=== PATIENT | male | born 1930 | race Caucasian/White ===

== ENCOUNTER 2017-07-05 03:46 | Inpatient (IN) | payer MEDICARE ==
[2017-07-05] VITALS (7 sets, daily range): BP systolic 105–158; BP diastolic 48–72
[~2017-07-05] VITALS: Ht 177.8 cm; Wt 99.0 kg
--- NOTE | ~2017-07-05 | CON ---
[place], [place] REPORT OF CONSULTATION NAME: SARITHA CAMPOS UNIT #: [id number] ROOM: 421 DOCTOR: LANCE RODRIGEZ MD BIRTHDATE: [birth year] DOS: 07/09/2017 CONSULTATION REQUESTED BY: Hospitalist services. REASON FOR CONSULTATION: Assessment of symptoms of cough and other symptoms of chronic obstructive pulmonary disease. HISTORY OF PRESENT ILLNESS: This is an 86-year-old white male patient, who has been hospitalized on 07/05/2017 under the care of the hospitalist service. The patient's original complaint on admission was reported as increased shortness of breath ongoing for the past few days after an acute cold attack. The patient's shortness of breath has been noted worsening with increased chest congestion and cough. The patient has not been reported any symptoms of chest pain. Denies symptoms of hemoptysis. Cough is still described by the patient with productive sputum at this time. The patient has been currently treated and noted in the Intensive Care Unit. He has been comfortably resting on the chair at this morning of assessment. REVIEW OF SYSTEMS: CONSTITUTIONAL: The patient was noted with symptoms of fatigue and tiredness, but there were no symptoms of fever or chills reported. EYES: Denies any burning, redness or tenderness. EARS, NOSE, THROAT: Denies sore throat, hoarseness, otalgia or postnasal drainage. He had cold symptoms, the patient seemed to be better this morning. CARDIOVASCULAR SYSTEM: Denies anginal pain, edema or pain in the lower extremity. GASTROINTESTINAL: No dysphagia, nausea, vomiting, diarrhea, abdominal pain, hematemesis, melena or hematochezia. SKIN: Denies abnormal lesions or rashes. MUSCULOSKELETAL: Noted without any acute deformities or pain. CENTRAL NERVOUS SYSTEM: History of Parkinsonism was noted in the past. There were no symptoms of diplopia, headache or migraines. The remaining systems were reviewed, they were noted all negative. PAST MEDICAL HISTORY: 1. History of Parkinsonism. 2. Dementia. 3. Head injury previously. 4. History of dementia. 5. History of frequent falls. 6. Visual hallucinations. PAST SURGICAL HISTORY: Reported as cholecystectomy. SOCIAL HISTORY: The patient stated he has worked in the [employer] for 32 years and has been noted past tobacco use, not smoking any cigarettes at this time. He is and has 2 children. FAMILY HISTORY: The patient's father of complication related to colon [place], [place] REPORT OF CONSULTATION NAME: SARITHA CAMPOS UNIT #: [id number] ROOM: 421 DOCTOR: SHRUTI FRAIRE MD,LANCE BIRTHDATE: [birth year] cancer, 60+ years old, with history of congestive heart failure also reported. Mother at the age of 60+ years from complication of uterine cancer. HOME MEDICATIONS: Listed as use of Sinemet, aspirin, Colace, fenofibrate, Lasix, levothyroxine, lisinopril, pravastatin, and Requip. DRUG ALLERGY HISTORY: Reported as no known drug allergies. PHYSICAL EXAMINATION: GENERAL: An 86-year-old white male patient, currently sitting on the chair without any acute distress at the time of assessment this morning. The patient's height was reported as 5 feet 10 inches, weight of 224 pounds, BMI 32. VITAL SIGNS: Showed the temperature normal at 99 degrees Fahrenheit in the past 3 days, respiratory 20-18, heart rate of 70-68, blood pressure 138/68 to 151/67. Pulse oxygen saturation on room air at rest was 95% saturation. HEENT: Head was atraumatic, partial edentulous status. NECK: Supple. CARDIOVASCULAR: S1, S2 audible. LUNGS: Noted with moderate decreased breath sounds in the lungs bilaterally. Wheezing was also noted scattered in the lungs. ABDOMEN: Soft, nontender. Mild obesity. Bowel sounds present without any tenderness. CENTRAL NERVOUS SYSTEM: The patient was noted with essential resting tremor consistent with diagnosis of Parkinsonism. There was no gross focal neurologic deficits seen. Cranial nerve examination could not be performed. VISIBLE SKIN: No lesions or rashes. MUSCULOSKELETAL: No deformities noted. LABORATORY DATA: Arterial blood gas for the patient that was done on 07/07/2017, pH of 7.45, pCO2 35, pO2 79, ammonia level 24. CMP of the patient on 07/07/2017, BUN 26, creatinine normal, sodium 133. Troponin minimally elevated at 0.18, second set was 0.174, done on 07/07/2017. Blood culture, no bacterial growth from 07/05/2017. BMP yesterday, BUN 26, creatinine was normal. CBC for the patient that was done yesterday noted as WBC count normal, hemoglobin 11.4, hematocrit 36.8. Chest x-ray of the patient that was done on admission, 1-view done first, on 07/05/2017, showed there was no acute major pulmonary infiltration. Chest x-ray repeated, 2-view, for the patient was noted essentially normal without any evidence of pulmonary infiltration, congestive heart failure or pleural effusions. IMPRESSION: 1. The patient has been currently admitted to the hospital, noted with acute chronic obstructive pulmonary disease exacerbation, responding to treatment with minimal wheezing noted. He has acute bronchitis, bacterial or viral in origin. 2. History of Parkinsonism with some dementia history as well. 3. The patient has other medical problem with the possibility of non-ST segment elevation myocardial infarction as well. PLAN OF MANAGEMENT: Continue corticosteroids, bronchodilators, and oxygen supplementation. The patient seems to respond to treatment, expectorates sputum [place], [place] REPORT OF CONSULTATION NAME: SARITHA CAMPOS UNIT #: [id number] ROOM: 421 DOCTOR: LANCE RODRIGEZ MD BIRTHDATE: [birth year] effectively, and would not require any new intervention at this time. If the symptoms become progressive from that one or if the patient develops any additional problem, certainly additional recommendation will be given accordingly. All other supportive therapy and plan of management to be continued as well. Usual care, other plan of therapy and treatments. Thanks for allowing me to participate in the care of this patient. LANCE BAHENA MD CM:CONSTR:REPORT OF CONSULTATION 1638 07/10/17 5520 interface
--- NOTE | ~2017-07-05 | CON ---
[place], [place] REPORT OF CONSULTATION NAME: SARITHA CAMPOS UNIT #: [id number] ROOM: [place] [address] DOCTOR: LILLIE MOSES MD BIRTHDATE: [birth year] DOS: 07/07/2017 LOCATION: The patient is examined in the Intensive Care Unit REASON FOR CONSULTATION: Altered mental status and mildly elevated troponin of 0.11. Most of the information is obtained from the chart. The patient was confused earlier and he is much better. HISTORY OF PRESENT ILLNESS: An 86-year-old gentleman with a known history of Parkinson's disease, admitted with shortness of breath. The patient, for the last 3-4 days, had cold-like symptoms. He denies any fever. He had become very short of breath, wheezing and chest congestion and he was started on antibiotics. He was in the 5th floor and became confused and he was transferred to the Intensive Care Unit with troponin of 0.11 as mentioned. He denies any chest discomfort. He does have shortness of breath and brief altered mental status. PAST MEDICAL HISTORY: Significant for closed head injury, dementia, frequent falls, hyperlipidemia, hypertension, Parkinson's disease. PAST SURGICAL HISTORY: Cholecystectomy. SOCIAL HISTORY: Denies any alcohol or drug abuse. Former smoker. FAMILY HISTORY: Positive for coronary artery disease. HOME MEDICATIONS: Carbidopa, Lasix, fenofibrate, lisinopril, pravastatin. CARDIAC RISK FACTORS: Hypertension, dyslipidemia, history of diastolic failure. REVIEW OF SYSTEMS: Somewhat limited because of altered mental status. He knows his name and place. He has intermittent confusion. CONSTITUTIONAL: Denies any fever or chills. HEENT: He does have some visual disturbances and hearing problems. CARDIOVASCULAR: No chest pain. No palpitations. RESPIRATORY: He does have shortness of breath. ABDOMEN: No nausea, no vomiting. GENITOURINARY: No dysuria. NEUROLOGIC: Intermittent confusion with altered mental status. PHYSICAL EXAMINATION: VITAL SIGNS: Blood pressure now is 140/70, heart rate is 76. He is in sinus rhythm. HEENT: Unremarkable. No carotid bruit. No thyromegaly. LUNGS: Clear. HEART: Sounds are regular. ABDOMEN: Soft, nontender. NEUROLOGICAL: He is moving all the extremities with intermittent confusion. LABORATORY AND IMAGING DATA: Shows hemoglobin 11.8, hematocrit 37, white count [place], [place] REPORT OF CONSULTATION NAME: SARITHA CAMPOS UNIT #: [id number] ROOM: [place] [address] DOCTOR: LILLIE MOSES MD BIRTHDATE: [birth year] of 9.7. Troponin was 0.11. His last creatinine was 1.04. Electrolytes were normal. EKG sinus with nonspecific ST-T changes. IMPRESSION: 1. Altered mental status. 2. Mildly elevated troponin noted. 3. Tachypnea, acute shortness of breath. 4. Acute kidney failure with acute tubular necrosis. 5. Normocytic anemia. 6. Hyperglycemia. 7. Hypermagnesemia. 8. Parkinson's disease. 9. Altered mental status. RECOMMENDATIONS: Continue the present care. Monitor the vital signs closely. Continue to do the serial enzymes. Add a very small dose of beta blockers like metoprolol 25 mg p.o. b.i.d. Get an echocardiogram to assess the ejection fraction. We will monitor the enzymes closely. Use heparin for DVT prophylaxis and we will follow up. LILLIE MOSES MD CM:CONSTR:REPORT OF CONSULTATION 0716 07/07/17 0855 interface
[~2017-07-05 03:46] MED LIST: AMLACTIN121 T; ANTIBIOTIC O500 U/GM TP; ARICEPT10 M1 PO; ASPIRIN81 M1 PO; BACTROBAN22 TP; BENZTROPINE ME0.5 MG PO; Bactrim 200 MG/30 ML PO; CEPHALEXIN500 M1 PO; CIPRO500 MG PO; COGENTIN0.5 MG PO; DOCUSATE SODIU100 M2 PO; DULCOLAX; DULCOLAX10 MG R; EUCERIN, DERMA120 GM T; EXELON3 MG PO; FLAGYL500 MG PO; FLEET ENEMA 13135 ML R; KEFLEX500 M1 PO; LASIX20 MG PO; LASIX40 MG PO; LISINOPRIL5 MG PO; Lovenox40 MG/0.4 SC; MIRALAX17 GM/PACK PO; MOM30 ML PO; NAMENDA-14 PO; NORCO 10-325 T1 EACH PO; NYSTOP100000 U/G T; Nystatin Cream15 GM T; ONE DAILY FOR1 EAC2 PO; PAXIL10 MG PO; PAXIL20 M1 PO; PRAVASTATIN SOD40 MG PO; PREPARATION H HYDR1% TP; REMERON15 M2 PO; SINEMET 25-1001 TA1 PO; SINEMET 25-100M1 TAB PO; SINEMET CR 50/21 TAB PO; STOOL SOFTENER100 MG PO; Sinemet Cr 50/21 TAB PO; TEMAZEPAM15 M1 PO; TYLENOL325 M1 PO
[2017-07-05] MEDS ORDERED: Synthroid,Levo25 MCG PO (03:52)
[2017-07-05] MEDS ORDERED: ROPINIROLE HY0.25 MG PO (03:53)
[2017-07-05] MEDS ORDERED: COLACE100 MG PO (03:53)
[2017-07-05] MEDS ORDERED: FENOFIBRATE160 MG PO (03:53)
[2017-07-05 04:13] LABS: BASO # 0.1 10*3/uL (0.0-0.1); BASO % 1.1 % (0.0-1.0); EOS # 0.2 10*3/uL (0.0-0.4); EOS % 3.2 % (1.0-4.0); HEMATOCRIT 38.9 % (42.0-52.0); HEMOGLOBIN 12.4 g/dl (14.0-18.0); LYMPH % 17.7 % (27.0-41.0); MEAN CELL VOLUME 88.6 fl (80.0-94.0); MEAN CORPUSCULAR HGB 28.2 pg (27.0-31.0); MEAN CORPUSCULAR HGB CONC 31.9 g/dl (33.0-37.0); MEAN PLATELET VOLUME 9.6 fl (9.6-12.3); MONO # 0.8 10*3/uL (0.1-1.0); MONO % 14.5 % (3.0-9.0); NEUT # 3.6 10*3/uL (2.3-7.9); NEUT % 63.1 % (47.0-73.0); PLATELET COUNT AUTOMATED 169 10*3/uL (130-400); RED BLOOD COUNT 4.39 10*6/uL (4.50-5.90); RED CELL DISTRI WIDTH 14.7 % (0-14.5); WHITE BLOOD COUNT 5.7 10*3/uL (4.8-10.8)
[2017-07-05 04:29] LABS: ALBUMIN 3.6 gm/dl (3.1-4.5); ALKALINE PHOSPHATASE 27 U/L (45-117); BUN 28 mg/dl (7-24); CHLORIDE 108 mmol/L (98-107); CREATININE 1.36 mg/dL (0.70-1.30); LIPASE 99 U/L (73-393); POTASSIUM 3.9 mmol/L (3.5-5.1); SGOT/AST 40 IU/L (3-35); SGPT/ALT 13 U/L (12-78); SODIUM 142 mmol/L (136-145); TOTAL PROTEIN 7.2 gm/dL (6.4-8.2)
[2017-07-05 04:30] LABS: TROPONIN I 0.043 ng/ml (<0.045)
[2017-07-05] MEDS ORDERED: LASIX20 MG PO (06:05)
[2017-07-06] VITALS: BP 139/63
[2017-07-06 07:11] LABS: BASO % 0.2 % (0.0-1.0); HEMATOCRIT 36.8 % (42.0-52.0); HEMOGLOBIN 11.6 g/dl (14.0-18.0); LYMPH # 0.8 10*3/uL (1.3-4.4); LYMPH % 12.1 % (27.0-41.0); MEAN CELL VOLUME 88.5 fl (80.0-94.0); MEAN CORPUSCULAR HGB 27.9 pg (27.0-31.0); MEAN CORPUSCULAR HGB CONC 31.5 g/dl (33.0-37.0); MEAN PLATELET VOLUME 9.7 fl (9.6-12.3); MONO # 0.5 10*3/uL (0.1-1.0); MONO % 7.1 % (3.0-9.0); NEUT # 5.3 10*3/uL (2.3-7.9); NEUT % 80.1 % (47.0-73.0); PLATELET COUNT AUTOMATED 164 10*3/uL (130-400); RED BLOOD COUNT 4.16 10*6/uL (4.50-5.90); RED CELL DISTRI WIDTH 14.6 % (0-14.5); WHITE BLOOD COUNT 6.6 10*3/uL (4.8-10.8)
[2017-07-06 07:31] LABS: ALBUMIN 3.1 gm/dl (3.1-4.5); CHLORIDE 110 mmol/L (98-107); POTASSIUM 3.9 mmol/L (3.5-5.1); SODIUM 143 mmol/L (136-145)
[2017-07-06 07:39] LABS: ALKALINE PHOSPHATASE 25 U/L (45-117); BUN 19 mg/dl (7-24); CHOLESTEROL 112 mg/dL (<200); CREATININE 1.04 mg/dL (0.70-1.30); HDL CHOLESTEROL 48 mg/dl (40-60); LDL CHOLESTEROL 50 mg/dL (9-159); SGOT/AST 32 IU/L (3-35); SGPT/ALT 11 U/L (12-78); TOTAL PROTEIN 6.7 gm/dL (6.4-8.2); TRIGLYCERIDES 72 mg/dl (<150); VLDL CHOLESTEROL 14 mg/dL (6-40)
[2017-07-06 08:00] VITALS: BP 152/68
[2017-07-06 08:11] LABS: VITAMIN D, 25-HYDROXY 23.7 ng/mL (30-100)
[2017-07-06 12:00] VITALS: BP 153/70
[2017-07-06 16:00] VITALS: BP 151/72
[2017-07-06 20:00] VITALS: BP 148/78
[2017-07-07] VITALS (7 sets, daily range): BP systolic 120–170; BP diastolic 53–82
[2017-07-07 05:01] LABS: ABG BASE EXCESS 1.1 mmol/L (-2.0-2.0); ABG HCO3 24.4 mmol/l (22-26); ABG O2 SATURATION 96.8 % (95-97); ARTERIAL BLOOD GAS PH 7.455 (7.35-7.45); ARTERIAL BLOOD GAS PO2 79.1 mmHg (80-90)
[2017-07-07 05:01] LABS: BASO % 0.3 % (0.0-1.0); HEMOGLOBIN 11.8 g/dl (14.0-18.0); LYMPH # 0.9 10*3/uL (1.3-4.4); LYMPH % 9.4 % (27.0-41.0); MEAN CELL VOLUME 87.3 fl (80.0-94.0); MEAN CORPUSCULAR HGB 27.8 pg (27.0-31.0); MEAN CORPUSCULAR HGB CONC 31.9 g/dl (33.0-37.0); MEAN PLATELET VOLUME 9.6 fl (9.6-12.3); MONO # 0.6 10*3/uL (0.1-1.0); MONO % 5.8 % (3.0-9.0); NEUT # 8.1 10*3/uL (2.3-7.9); NEUT % 84.2 % (47.0-73.0); PLATELET COUNT AUTOMATED 182 10*3/uL (130-400); RED BLOOD COUNT 4.24 10*6/uL (4.50-5.90); RED CELL DISTRI WIDTH 14.7 % (0-14.5); WHITE BLOOD COUNT 9.7 10*3/uL (4.8-10.8)
[2017-07-07 05:19] LABS: ALBUMIN 3.1 gm/dl (3.1-4.5); ALKALINE PHOSPHATASE 27 U/L (45-117); BUN 26 mg/dl (7-24); CHLORIDE 108 mmol/L (98-107); CREATININE 1.12 mg/dL (0.70-1.30); PHOSPHOROUS 2.4 mg/dL (2.5-4.9); POTASSIUM 4.2 mmol/L (3.5-5.1); SGOT/AST 45 IU/L (3-35); SGPT/ALT 16 U/L (12-78); SODIUM 142 mmol/L (136-145); TOTAL PROTEIN 6.8 gm/dL (6.4-8.2)
[2017-07-07 05:27] LABS: TROPONIN I 0.118 ng/ml (<0.045)
[2017-07-07 10:28] LABS: BILIRUBIN NEGATIVE (NEGATIVE); BLOOD NEGATIVE (NEGATIVE); CLARITY CLEAR (CLEAR); COLOR STRAW (YELLOW); GLUCOSE NEGATIVE (NEGATIVE); KETONE NEGATIVE (NEGATIVE); LEUKO ESTERASE NEGATIVE (NEGATIVE); NITRITE NEGATIVE (NEGATIVE); PH 5.5 (5.0-9.0); SPECIFIC GRAVITY <= 1.005 (1.005-1.030); UROBILINOGEN 0.2 E.U./dl (0.2-1.0)
[2017-07-07 11:11] LABS: BACTERIA TRACE; EPITHELIAL CELLS 0-2
[2017-07-08] VITALS: BP 153/83
[2017-07-08 04:00] VITALS: BP 130/64; BP 166/71
[2017-07-08 05:07] LABS: BUN 26 mg/dl (7-24); CHLORIDE 108 mmol/L (98-107); CREATININE 1.08 mg/dL (0.70-1.30); POTASSIUM 4.4 mmol/L (3.5-5.1); SODIUM 143 mmol/L (136-145)
[2017-07-08 05:55] LABS: BASO % 0.2 % (0.0-1.0); EOS % 0.1 % (1.0-4.0); HEMATOCRIT 36.8 % (42.0-52.0); HEMOGLOBIN 11.4 g/dl (14.0-18.0); LYMPH # 1.8 10*3/uL (1.3-4.4); LYMPH % 20.7 % (27.0-41.0); MEAN CELL VOLUME 89.8 fl (80.0-94.0); MEAN CORPUSCULAR HGB 27.8 pg (27.0-31.0); MEAN PLATELET VOLUME 10.5 fl (9.6-12.3); MONO # 0.7 10*3/uL (0.1-1.0); MONO % 8.6 % (3.0-9.0); NEUT % 69.9 % (47.0-73.0); PLATELET COUNT AUTOMATED 188 10*3/uL (130-400); RED CELL DISTRI WIDTH 14.8 % (0-14.5); WHITE BLOOD COUNT 8.6 10*3/uL (4.8-10.8)
[2017-07-08 08:00] VITALS: BP 180/77
[2017-07-08 12:00] VITALS: BP 154/68
[2017-07-08 15:57] VITALS: BP 151/59
[2017-07-08 20:03] VITALS: BP 151/67
[2017-07-09] VITALS: BP 159/58
[2017-07-09 04:00] VITALS: BP 161/77
[2017-07-09 08:00] VITALS: BP 138/88
[2017-07-09 12:00] VITALS: BP 136/70
[2017-07-09] MEDS ORDERED: PREDNISONE10 MG PO (15:32)
[2017-07-09] MEDS ORDERED: TOPROL XL25 MG PO (15:34)
[2017-07-09 16:00] VITALS: BP 108/69
== END 2017-07-09 17:30 | disposition other institution (70) | DRG 871 ==
LOC: ED 03:46 → EDHOLD 04:55 → 4E 04:55 → ICCU 04:55 → 4E 05:13 → ICCU 07-07 06:46 → 4E 07-09 13:57
PROVIDERS: Emergency Medicine Emergency Medical Services; Internal Medicine; Student in an Organized Health Care Education/Training Program
DX: A41.9 Sepsis, unspecified organism (principal); N17.0 Acute kidney failure with tubular necrosis; I21.A1 Myocardial infarction type 2; J18.9 Pneumonia, unspecified organism; G20 Parkinson's disease; E44.0 Moderate protein-calorie malnutrition; E87.8 Other disorders of electrolyte and fluid balance, not elsewhere classified; J44.0 Chronic obstructive pulmonary disease with (acute) lower respiratory infection; J44.1 Chronic obstructive pulmonary disease with (acute) exacerbation; Z68.32 Body mass index [BMI] 32.0-32.9, adult; R65.20 Severe sepsis without septic shock; D64.9 Anemia, unspecified; J20.9 Acute bronchitis, unspecified; F02.80 Dementia in other diseases classified elsewhere, unspecified severity, without behavioral disturbance, psychotic disturbance, mood disturbance, and anxiety; D72.810 Lymphocytopenia; R73.9 Hyperglycemia, unspecified; E83.41 Hypermagnesemia; E83.51 Hypocalcemia; R74.0 Nonspecific elevation of levels of transaminase and lactic acid dehydrogenase [LDH]; I10 Essential (primary) hypertension; E78.5 Hyperlipidemia, unspecified; E83.39 Other disorders of phosphorus metabolism; Z87.440 Personal history of urinary (tract) infections; Z91.81 History of falling; Z90.49 Acquired absence of other specified parts of digestive tract; Z98.42 Cataract extraction status, left eye; Z87.891 Personal history of nicotine dependence; Z82.49 Family history of ischemic heart disease and other diseases of the circulatory system; Z80.8 Family history of malignant neoplasm of other organs or systems; Z83.3 Family history of diabetes mellitus; Z79.82 Long term (current) use of aspirin; Z79.899 Other long term (current) drug therapy; Z80.0 Family history of malignant neoplasm of digestive organs

== ENCOUNTER 2017-09-21 17:24 | Emergency (ER) | payer MEDICARE ==
[~2017-09-21] VITALS: Ht 177.8 cm; Wt 94.3 kg
[~2017-09-21 17:24] MED LIST changes: +COLACE100 MG PO; +FENOFIBRATE160 MG PO; +PREDNISONE10 MG PO; +ROPINIROLE HY0.25 MG PO; +Synthroid,Levo25 MCG PO; +TOPROL XL25 MG PO
[2017-09-21 17:26] VITALS: BP 154/61
[2017-09-21 17:56] LABS: BILIRUBIN NEGATIVE (NEGATIVE); BLOOD NEGATIVE (NEGATIVE); CLARITY SL CLOUDY (CLEAR); COLOR YELLOW (YELLOW); GLUCOSE NEGATIVE (NEGATIVE); KETONE NEGATIVE (NEGATIVE); LEUKO ESTERASE NEGATIVE (NEGATIVE); NITRITE NEGATIVE (NEGATIVE); PH 5.5 (5.0-9.0)
[2017-09-21 18:06] LABS: BACTERIA TRACE; EPITHELIAL CELLS 0-2; RBC 0-2 rbc/hpf (0-2)
[2017-09-21 18:19] LABS: BASO # 0.1 10*3/uL (0.0-0.1); BASO % 1.1 % (0.0-1.0); EOS # 0.2 10*3/uL (0.0-0.4); HEMATOCRIT 37.7 % (42.0-52.0); HEMOGLOBIN 11.8 g/dl (14.0-18.0); LYMPH # 2.5 10*3/uL (1.3-4.4); LYMPH % 37.6 % (27.0-41.0); MEAN CELL VOLUME 89.3 fl (80.0-94.0); MEAN CORPUSCULAR HGB CONC 31.3 g/dl (33.0-37.0); MEAN PLATELET VOLUME 9.6 fl (9.6-12.3); MONO # 0.8 10*3/uL (0.1-1.0); MONO % 12.7 % (3.0-9.0); NEUT % 45.3 % (47.0-73.0); PLATELET COUNT AUTOMATED 179 10*3/uL (130-400); RED BLOOD COUNT 4.22 10*6/uL (4.50-5.90); RED CELL DISTRI WIDTH 14.7 % (0-14.5); WHITE BLOOD COUNT 6.6 10*3/uL (4.8-10.8)
[2017-09-21 18:30] LABS: ACT PARTIAL THROMBO TIME 22.6 SECONDS (20.8-31.5)
[2017-09-21 18:34] LABS: ALBUMIN 3.7 gm/dl (3.1-4.5); ALKALINE PHOSPHATASE 27 U/L (45-117); BUN 21 mg/dl (7-24); CHLORIDE 107 mmol/L (98-107); CREATININE 1.34 mg/dL (0.70-1.30); LIPASE 95 U/L (73-393); POTASSIUM 3.7 mmol/L (3.5-5.1); SGOT/AST 25 IU/L (3-35); SGPT/ALT 12 U/L (12-78); SODIUM 144 mmol/L (136-145); TOTAL PROTEIN 6.9 gm/dL (6.4-8.2); TROPONIN I 0.034 ng/ml (<0.045)
[2017-09-21 19:28] VITALS: BP 189/75
[2017-09-21 20:32] VITALS: BP 176/71
[2017-09-21 21:27] VITALS: BP 182/72
[2017-09-21 22:49] VITALS: BP 173/60
[2017-09-21 23:26] VITALS: BP 162/64
[2017-09-22 00:14] VITALS: BP 169/61
[2017-09-22 00:42] VITALS: BP 160/61
== END 2017-09-22 00:57 | disposition short-term general hospital (02) ==
LOC: ED 17:24 → EDHOLD 19:20 → 5E 19:29 → EDHOLD 19:29 → ED 09-22 00:57
PROVIDERS: Emergency Medicine
DX: E86.0 Dehydration (principal); G93.41 Metabolic encephalopathy; I48.92 Unspecified atrial flutter; E78.5 Hyperlipidemia, unspecified; I10 Essential (primary) hypertension; I25.2 Old myocardial infarction; G20 Parkinson's disease; Z87.891 Personal history of nicotine dependence; Z90.49 Acquired absence of other specified parts of digestive tract; Z98.890 Other specified postprocedural states; Z79.82 Long term (current) use of aspirin; Z79.899 Other long term (current) drug therapy

== ENCOUNTER 2017-10-05 13:16 | Emergency (ER) | payer MEDICARE ==
[~2017-10-05] VITALS: Ht 177.8 cm; Wt 90.7 kg
== END 2017-10-05 14:45 | disposition home or self-care (01) ==
LOC: ED 13:16
DX: S01.01XA Laceration without foreign body of scalp, initial encounter (principal); E78.5 Hyperlipidemia, unspecified; I10 Essential (primary) hypertension; E03.9 Hypothyroidism, unspecified; E66.3 Overweight; I48.92 Unspecified atrial flutter; Z68.29 Body mass index [BMI] 29.0-29.9, adult; Z79.899 Other long term (current) drug therapy; Z79.82 Long term (current) use of aspirin; Z87.891 Personal history of nicotine dependence; W18.30XA Fall on same level, unspecified, initial encounter; Y93.89 Activity, other specified; Y92.89 Other specified places as the place of occurrence of the external cause; Y99.8 Other external cause status

== ENCOUNTER 2017-12-16 14:15 | Inpatient (IN) | payer MEDICARE ==
[2017-12-16] VITALS (8 sets, daily range): BP systolic 84–143; BP diastolic 46–81
[~2017-12-16] VITALS: Ht 177.8 cm; Wt 94.9 kg
--- NOTE | ~2017-12-16 | PR ---
[place], [place] PROGRESS NOTE NAME: SARITHA CAMPOS UNIT #: [id number] ROOM: 409 DOCTOR: LILLIE MOSES MD BIRTHDATE: [birth year] DOS: 12/22/2017 SUBJECTIVE: The patient was evaluated by me earlier, the patient is well known to me. The patient is comfortably sleeping at this point. REVIEW OF SYSTEMS: Somewhat limited because of intermittent confusion. OBJECTIVE: VITAL SIGNS: Blood pressure is 118/80. He is afebrile. The repeat pressure is 155/64. I's and O's is positive l iter. GENERAL: He is alert, awake, not in acute distress, responsive, pleasant. HEENT: Unremarkable. NECK: Supple, no JVD. LUNGS: Diminished air entry. HEART: Sounds are regular. ABDOMEN: Soft, nontender. No rebound tenderness. EXTREMITIES: Intact pulses. NEUROLOGIC: Grossly intact with a parkinsonian tremors. IMPRESSION: Escherichia coli bacteremia, septicemia, acute renal failure, generalized weakness, mildly elevated troponin, paroxysmal atrial flutter and hypothyroidism. RECOMMENDATIONS: Cardiac status appears to be stable. Ejection fraction is very well preserved. Continue the present medications as ordered. He is on metoprolol 25 b.i.d. and the antibiotics and levothyroxine, fenofibrate, carbidopa and PT, OT consult. Supportive care. LILLIE MOSES MD CM:PNTRANS 0714 [id number] LILLIE MOSES MD 12/22/17 0856 interface
--- NOTE | ~2017-12-16 | PR ---
[place], [place] PROGRESS NOTE NAME: SARITHA CAMPOS UNIT #: [id number] ROOM: 409 DOCTOR: NIC LIEBERMAN BIRTHDATE: [birth year] DOS: 12/19/2017 SUBJECTIVE: The patient is an 87-year-old male who is being followed for E. coli septicemia and prostatitis. He remains on Rocephin. WBCs are coming down. They are down to 14.6. He did have a UA that was positive for pyuria. Blood and urine cultures grew fairly sensitive E. coli. His only imaging has been a chest x-ray. The patient is alert, confused and unable to give any history. He denies any pain. Denies nausea, vomiting or diarrhea. He has been afebrile overnight. LABORATORY DATA: WBCs are down to 14.6, platelets 150. BUN 17, creatinine 0.87, ALT 29, AST 8. PHYSICAL EXAMINATION: GENERAL: An 87-year-old male, alert, confused, pleasant, in no acute distress. VITAL SIGNS: Temperature 97.9, pulse 76, respirations 16, BP 150/90. HEENT: Normocephalic, no thrush. LUNGS: Clear to auscultation bilaterally. Respirations even and unlabored. HEART: Regular rhythm. No murmur appreciated. ABDOMEN: Soft, mild distention, nontender. Positive bowel sounds. EXTREMITIES: +2 edema in bilateral lower extremities. SKIN: Warm, very dry, free of rashes. ASSESSMENT: Escherichia coli septicemia from urinary tract infection, may have originated with a prostatitis. PLAN: At this point, we will continue the Rocephin and check PSA to help confirm possible prostatitis. JUNE NIC LUISANA [place], [place] PROGRESS NOTE NAME: SARITHA CAMPOS UNIT #: [id number] ROOM: 409 DOCTOR: NIC LIEBERMAN,JUNE BIRTHDATE: [birth year] Danay Dexter MD CM:PNTRANS 1611 [id number] JUNE [facility] 12/19/17 1637 interface
--- NOTE | ~2017-12-16 | CON ---
[place], [place] REPORT OF CONSULTATION NAME: SARITHA CAMPOS UNIT #: [id number] ROOM: [facility] DOCTOR: LILLIE MOSES MD BIRTHDATE: [birth year] DOS: 12/17/2017 The patient examined in the Intensive Care Unit. REASON FOR CONSULTATION: Mildly elevated troponin, most of the information is obtained from the chart. HISTORY OF PRESENT ILLNESS: The patient is an 87-year-old gentleman whom I had seen in the past basically came in with me with a history of Parkinson's disease, paroxysmal atrial fibrillation, hypertension, dyslipidemia, depression, and numerous, multiple admissions. The patient was feeling well until yesterday morning, being half for about 2 months, he was in rehab after hospital stay for a urinary tract infection. The patient is readmitted for the same reason. The patient is bacteremic and also has a urinary tract infection. Troponin is mildly elevated, probably type 2 myocardial infarction from the underlying left anemia and other issues. He denies any chest discomfort, not in acute distress at this point. PAST MEDICAL HISTORY: Paroxysmal atrial fibrillation, dementia, hyperlipidemia, hypertension, Parkinson's disease. PAST SURGICAL HISTORY: Cardiac catheterization, cholecystectomy, cataract extraction, colonoscopy. SOCIAL HISTORY: Denies any alcohol abuse. Former smoker. FAMILY HISTORY: Noncontributory. HOME MEDICATIONS: Include atorvastatin, fenofibrate supply and lisinopril, melatonin, metoprolol. REVIEW OF SYSTEMS: Somewhat limited because of the underlying dementia; however, he denies any chest discomfort. HEENT: Denies any blurred vision. CARDIOVASCULAR: As mentioned. GASTROINTESTINAL: No nausea, no vomiting. GENITOURINARY: No dysuria. NEUROLOGIC: He appears to be somewhat alert, intermittent confusion. PHYSICAL EXAMINATION: VITAL SIGNS: Blood pressure today 96/37. GENERAL: He is alert, awake, does not look to be in acute distress. HEENT: Unremarkable. NECK: Supple, no JVD. LUNGS: Diminished breath sounds. HEART: Sounds are regular. ABDOMEN: Soft, nontender. NEUROLOGICAL: Moving all the extremities grossly intact. A very poor historian, exhibits normal mood left leg. [place], [place] REPORT OF CONSULTATION NAME: SARITHA CAMPOS UNIT #: [id number] ROOM: [facility]6 DOCTOR: LILLIE MOSES MD BIRTHDATE: [birth year] LABORATORY DATA: Sodium is 143, potassium 3.5, creatinine is 1.7. Hemoglobin A1c is 7.2. Troponin is 0.23. INR is 1.2. Hemoglobin 10.4, hematocrit 32.6. Urine is positive with bacteria 4+. Blood cultures are positive also. IMPRESSION: Septicemia and bacteremia, urinary tract infection, elevated troponin, probably type 2 from the renal insufficiency as well as bacteremia, acute renal failure with acute tubular necrosis, obesity, Parkinson's disease, hypothyroidism, hyperlipidemia, all positive for the positives and negatives are positive for Gram-negative bacteremia. Echocardiogram showed no obvious vegetations, ejection fraction is well preserved. Troponin elevation is probably secondary to the other underlying causes. Continue the beta blockers and the aspirin as ordered. Monitor the heart rate and blood pressure closely. Continue IV antibiotics. Discussed with the patient's family in detail and will follow up. LILLIE MOSES MD CM:CONSTR:REPORT OF CONSULTATION 1535 12/17/17 1721 interface
--- NOTE | ~2017-12-16 | PR ---
[place], [place] PROGRESS NOTE NAME: SARITHA CAMPOS UNIT #: [id number] ROOM: 409 DOCTOR: ELVIS ROJAS MD BIRTHDATE: [birth year] DOS: 12/20/[address] Bonner SUBJECTIVE: This patient was admitted with the urinary tract infection and was somewhat septic and troponin I level was slightly increased. He is comfortable. He is sitting in a recliner, not tachypneic. He is not complaining of any chest pain or any palpitations. The notes tell me that he has been eating reasonably well. PHYSICAL EXAMINATION: GENERAL: This is a patient who is alert, oriented. VITAL SIGNS: Pulse is 76 and regular, blood pressure 156/86. NECK: Normal JVP. LUNGS: He has a few crackles in the right base, left lung seems to be clear, 1+ pretibial edema bilaterally. LABORATORY DATA: I looked to the initial ECG done on the that demonstrated sinus tachycardia at 125 beats per minute with left anterior hemiblock. Monitor now shows normal sinus rhythm with a heart rate in the 70s. IMPRESSION: This patient had slightly increased troponin level. I think this is probably due to infection, tachycardia and perhaps anemia. Echocardiogram showed normal LV. No further workup is recommended. ELVIS ROJAS MD CM:PNTRANS 1538 2220 ELVIS ROJAS MD 01/08/18 1006 interface
--- NOTE | ~2017-12-16 | EKG ---
[place], [place] ELECTROCARDIOGRAM REPORT NAME: SARITHA CAMPOS UNIT #: [id number] ROOM: [facility] DOCTOR: CUAUHTEMOC DRAFT REPORT BIRTHDATE: [birth year] [facility] Test Date: 2017-12-16 Test Time: 14:46:58 Pat Name: SARTIHA CAMPOS Department: Room: [facility] Gender: M Supervisor Felling Bucking: Tessa Bergeron : 1930 Requested By: ALEXANDRA MEI PA-C Order Number: [id number] Reading MD: Jacinto Bonner MD Measurements Intervals [place] Rate: 125 P: 200 NV: 78 QRS: -75 QRSD: 102 T: 38 QT: 437 QTc: 631 Interpretive Statements Sinus or ectopic atrial tachycardia Left anterior fascicular block Abnormal R-wave progression, late transition Prolonged QT interval Electronically Signed On 12-17-2017 8:27:13 PDT by Jacinto Bonner MD CM:EKGRPT:ELECTROCARDIOGRAM REPORT [id number] [id number] ALEXANDRA MEI PA-C EPIPHANY DRAFT REPORT ALEXANDRA MEI PA-C
--- NOTE | ~2017-12-16 | PR ---
[place], [place] PROGRESS NOTE NAME: SARITHA CAMPOS UNIT #: [id number] ROOM: 409 DOCTOR: JOSESITO MYLES,ESTELITA BIRTHDATE: [birth year] DOS: 12/19/2017 I agree with the assessment and plan made by the nurse practitioner, Glory Bergeron. I had the [id number] encounter and made necessary changes in the note. I reviewed the labs and imaging. Danay Bellamy MD CM:PNTRANS 1655 0249 ESTELITA BELLAMY MD 01/05/18 0247 interface
[~2017-12-16 14:15] MED LIST changes: +LISINOPRIL10 M1 PO; -LISINOPRIL5 MG PO; +SINEMET 25-1001 EACH PO; -SINEMET 25-1001 TA1 PO; -SINEMET CR 50/21 TAB PO; -Synthroid,Levo25 MCG PO; +Synthroid,Levo50 MCG PO
[2017-12-16 14:53] LABS: HEMATOCRIT 37.7 % (42.0-52.0); HEMOGLOBIN 11.9 g/dl (14.0-18.0); MEAN CELL VOLUME 88.3 fl (80.0-94.0); MEAN CORPUSCULAR HGB 27.9 pg (27.0-31.0); MEAN CORPUSCULAR HGB CONC 31.6 g/dl (33.0-37.0); PLATELET COUNT AUTOMATED 148 10*3/uL (130-400); RED BLOOD COUNT 4.27 10*6/uL (4.50-5.90); RED CELL DISTRI WIDTH 14.8 % (0-14.5); WHITE BLOOD COUNT 4.9 10*3/uL (4.8-10.8)
[2017-12-16 15:02] LABS: ACT PARTIAL THROMBO TIME 21.8 SECONDS (20.8-31.5); INTERNATIONAL NORM RATIO 1.1 (2.0-3.5)
[2017-12-16 15:07] LABS: ALBUMIN 2.8 gm/dl (3.1-4.5); CREATININE 1.65 mg/dL (0.70-1.30); POTASSIUM 3.9 mmol/L (3.5-5.1); TOTAL PROTEIN 6.6 gm/dL (6.4-8.2)
[2017-12-16 15:07] LABS: BILIRUBIN NEGATIVE (NEGATIVE); BLOOD 2+ (NEGATIVE); CLARITY SL CLOUDY (CLEAR); COLOR YELLOW (YELLOW); GLUCOSE NEGATIVE (NEGATIVE); KETONE NEGATIVE (NEGATIVE); LEUKO ESTERASE TRACE (NEGATIVE); NITRITE POSITIVE (NEGATIVE)
[2017-12-16 15:10] LABS: TROPONIN I 0.053 ng/ml (<0.045)
[2017-12-16 15:13] LABS: BACTERIA 4+
[2017-12-16 15:14] LABS: PLATELET SUFFICIENCY NORMAL (NORMAL); ROULEAUX SLIGHT; TOTAL CELLS COUNTED 100 #CELLS; VACUOLATION OF NEUTROPHILS SLIGHT
[2017-12-16 15:14] LABS: RBC 31-40 rbc/hpf (0-2); WBC 16-20 wbc/hpf (0-5)
[2017-12-16] MEDS ORDERED: LIPITOR40 MG PO (15:17)
[2017-12-16] MEDS ORDERED: ICAPS MV TABLE1 EACH PO (15:18)
[2017-12-16] MEDS ORDERED: CLARITIN10 MG PO (15:19)
[2017-12-16] MEDS ORDERED: MELATONIN3 MG PO (15:19)
[2017-12-16] MEDS ORDERED: LOPRESSOR25 MG PO (15:20)
[2017-12-16] MEDS ORDERED: MIRALAX119 GM PO (15:21)
[2017-12-16] MEDS ORDERED: TYLENOL325 M2 PO (15:21)
[2017-12-16] MEDS ORDERED: ZOLOFT50 MG PO (15:21)
[2017-12-16] MEDS ORDERED: ICAPS AREDS SO1 EACH PO (17:53)
[2017-12-17] VITALS (7 sets, daily range): BP systolic 96–135; BP diastolic 37–59
[2017-12-17 00:41] LABS: CKMB 3.5 ng/ml (0.5-3.6)
[2017-12-17 00:42] LABS: TROPONIN I 0.228 ng/ml (<0.045)
[2017-12-17 04:34] LABS: HEMATOCRIT 32.6 % (42.0-52.0); HEMOGLOBIN 10.4 g/dl (14.0-18.0); MEAN CELL VOLUME 86.2 fl (80.0-94.0); MEAN CORPUSCULAR HGB 27.5 pg (27.0-31.0); MEAN CORPUSCULAR HGB CONC 31.9 g/dl (33.0-37.0); PLATELET COUNT AUTOMATED 147 10*3/uL (130-400); RED BLOOD COUNT 3.78 10*6/uL (4.50-5.90); RED CELL DISTRI WIDTH 15.2 % (0-14.5); WHITE BLOOD COUNT 29.9 10*3/uL (4.8-10.8)
[2017-12-17 04:45] LABS: INTERNATIONAL NORM RATIO 1.2 (2.0-3.5)
[2017-12-17 05:06] LABS: CKMB 4.7 ng/ml (0.5-3.6)
[2017-12-17 05:07] LABS: TROPONIN I 0.23 ng/ml (<0.045)
[2017-12-17 05:16] LABS: ALBUMIN 2.5 gm/dl (3.1-4.5); POTASSIUM 3.5 mmol/L (3.5-5.1)
[2017-12-17 05:28] LABS: CREATININE 1.7 mg/dL (0.70-1.30); PHOSPHOROUS 2.8 mg/dL (2.5-4.9); THYROID STIM HORMONE (HS) 3.43 uIU/ml (0.358-4.75)
[2017-12-17 05:29] LABS: TOTAL CELLS COUNTED 100 #CELLS
[2017-12-17 05:30] LABS: TOXIC GRANULATION SLIGHT
[2017-12-17 05:33] LABS: PLATELET SUFFICIENCY NORMAL (NORMAL)
[2017-12-17 07:33] LABS: VITAMIN D, 25-HYDROXY 27.6 ng/mL (30-100)
[2017-12-18 04:00] VITALS: BP 130/50
[2017-12-18 05:41] LABS: ALBUMIN 2.4 gm/dl (3.1-4.5); ALKALINE PHOSPHATASE 35 U/L (45-117); BUN 26 mg/dl (7-24); CHLORIDE 117 mmol/L (98-107); CREATININE 1.26 mg/dL (0.70-1.30); PHOSPHOROUS 2.4 mg/dL (2.5-4.9); POTASSIUM 3.8 mmol/L (3.5-5.1); SGOT/AST 42 IU/L (3-35); SGPT/ALT 8 U/L (12-78); SODIUM 148 mmol/L (136-145); TOTAL PROTEIN 6.2 gm/dL (6.4-8.2)
[2017-12-18 06:35] LABS: HEMATOCRIT 33.3 % (42.0-52.0); HEMOGLOBIN 10.3 g/dl (14.0-18.0); MEAN CELL VOLUME 87.9 fl (80.0-94.0); MEAN CORPUSCULAR HGB 27.2 pg (27.0-31.0); MEAN CORPUSCULAR HGB CONC 30.9 g/dl (33.0-37.0); MEAN PLATELET VOLUME 10.7 fl (9.6-12.3); PLATELET COUNT AUTOMATED 147 10*3/uL (130-400); RED BLOOD COUNT 3.79 10*6/uL (4.50-5.90); RED CELL DISTRI WIDTH 15.7 % (0-14.5); WHITE BLOOD COUNT 23.6 10*3/uL (4.8-10.8)
[2017-12-18 07:28] LABS: BASOPHILS 1 % (0-1); BURR CELLS MODERATE; PLATELET SUFFICIENCY NORMAL (NORMAL); TOTAL CELLS COUNTED 100 #CELLS
[2017-12-18 08:00] VITALS: BP 151/75
[2017-12-18 12:00] VITALS: BP 133/61
[2017-12-18 16:00] VITALS: BP 132/68
[2017-12-18 20:00] VITALS: BP 114/52
[2017-12-19] VITALS: BP 162/80
[2017-12-19 04:00] VITALS: BP 164/93
[2017-12-19 06:05] LABS: ALBUMIN 2.2 gm/dl (3.1-4.5); ALKALINE PHOSPHATASE 33 U/L (45-117); BUN 17 mg/dl (7-24); CHLORIDE 116 mmol/L (98-107); CREATININE 0.87 mg/dL (0.70-1.30); PHOSPHOROUS 2.2 mg/dL (2.5-4.9); SGOT/AST 29 IU/L (3-35); SGPT/ALT 8 U/L (12-78); SODIUM 149 mmol/L (136-145)
[2017-12-19 06:20] LABS: BASO # 0.1 10*3/uL (0.0-0.1); BASO % 0.6 % (0.0-1.0); EOS # 0.5 10*3/uL (0.0-0.4); EOS % 3.4 % (1.0-4.0); HEMATOCRIT 31.7 % (42.0-52.0); LYMPH # 1.9 10*3/uL (1.3-4.4); LYMPH % 12.8 % (27.0-41.0); MEAN CELL VOLUME 86.6 fl (80.0-94.0); MEAN CORPUSCULAR HGB 27.3 pg (27.0-31.0); MEAN CORPUSCULAR HGB CONC 31.5 g/dl (33.0-37.0); MEAN PLATELET VOLUME 10.8 fl (9.6-12.3); MONO # 0.8 10*3/uL (0.1-1.0); MONO % 5.3 % (3.0-9.0); NEUT # 11.2 10*3/uL (2.3-7.9); NEUT % 76.6 % (47.0-73.0); PLATELET COUNT AUTOMATED 150 10*3/uL (130-400); RED BLOOD COUNT 3.66 10*6/uL (4.50-5.90); RED CELL DISTRI WIDTH 15.8 % (0-14.5); WHITE BLOOD COUNT 14.6 10*3/uL (4.8-10.8)
[2017-12-19 08:00] VITALS: BP 150/90
[2017-12-19 16:00] VITALS: BP 149/72
[2017-12-19 20:00] VITALS: BP 156/73
[2017-12-20] VITALS: BP 140/70
[2017-12-20 06:49] LABS: BASO # 0.1 10*3/uL (0.0-0.1); EOS # 0.5 10*3/uL (0.0-0.4); EOS % 4.9 % (1.0-4.0); HEMATOCRIT 33.3 % (42.0-52.0); HEMOGLOBIN 10.6 g/dl (14.0-18.0); LYMPH # 2.1 10*3/uL (1.3-4.4); LYMPH % 20.5 % (27.0-41.0); MEAN CELL VOLUME 87.2 fl (80.0-94.0); MEAN CORPUSCULAR HGB 27.7 pg (27.0-31.0); MEAN CORPUSCULAR HGB CONC 31.8 g/dl (33.0-37.0); MEAN PLATELET VOLUME 10.7 fl (9.6-12.3); MONO # 0.6 10*3/uL (0.1-1.0); MONO % 6.2 % (3.0-9.0); NEUT # 6.6 10*3/uL (2.3-7.9); NEUT % 64.6 % (47.0-73.0); NUCLEATED RED BLOOD CELL 0.2 % (0.0-0.0); PLATELET COUNT AUTOMATED 176 10*3/uL (130-400); RED BLOOD COUNT 3.82 10*6/uL (4.50-5.90); RED CELL DISTRI WIDTH 15.8 % (0-14.5); WHITE BLOOD COUNT 10.2 10*3/uL (4.8-10.8)
[2017-12-20 07:26] LABS: BUN 14 mg/dl (7-24); CHLORIDE 112 mmol/L (98-107); POTASSIUM 4.2 mmol/L (3.5-5.1); SODIUM 144 mmol/L (136-145)
[2017-12-20 07:40] LABS: PHOSPHOROUS 3.3 mg/dL (2.5-4.9)
[2017-12-20 12:00] VITALS: BP 156/86
[2017-12-20 16:00] VITALS: BP 174/71
[2017-12-20 20:00] VITALS: BP 152/68
[2017-12-21] VITALS: BP 150/96
[2017-12-21 04:00] VITALS: BP 160/64
[2017-12-21 12:00] VITALS: BP 118/80
[2017-12-21] MEDS ORDERED: VITAMIN D-32000 UNIT PO (15:09)
[2017-12-21 16:00] VITALS: BP 158/74
[2017-12-21 20:00] VITALS: BP 160/61
[2017-12-21 21:30] VITALS: BP 152/64
[2017-12-22] VITALS: BP 155/64
[2017-12-22 08:00] VITALS: BP 138/70; BP 156/68
[2017-12-22 12:00] VITALS: BP 149/70
[2017-12-22 16:00] VITALS: BP 124/60
[2017-12-22 20:00] VITALS: BP 126/59
[2017-12-23] VITALS: BP 142/61
[2017-12-23 06:56] LABS: HEMATOCRIT 35.8 % (42.0-52.0); HEMOGLOBIN 11.2 g/dl (14.0-18.0); MEAN CELL VOLUME 86.3 fl (80.0-94.0); MEAN CORPUSCULAR HGB CONC 31.3 g/dl (33.0-37.0); MEAN PLATELET VOLUME 9.9 fl (9.6-12.3); PLATELET COUNT AUTOMATED 223 10*3/uL (130-400); RED BLOOD COUNT 4.15 10*6/uL (4.50-5.90); RED CELL DISTRI WIDTH 15.5 % (0-14.5); WHITE BLOOD COUNT 8.7 10*3/uL (4.8-10.8)
[2017-12-23 07:05] LABS: CREATININE 1.04 mg/dL (0.70-1.30)
[2017-12-23 07:44] LABS: TOTAL CELLS COUNTED 100 #CELLS
[2017-12-23 07:45] LABS: PLATELET SUFFICIENCY NORMAL (NORMAL)
[2017-12-23 08:00] VITALS: BP 149/71
[2017-12-23 12:00] VITALS: BP 149/69
[2017-12-23] MEDS ORDERED: CIPROFLOXACIN500 M4 PO (13:30)
== END 2017-12-23 16:04 | DRG 871 ==
LOC: ED 14:15 → EDHOLD 16:15 → ICCU 16:15 → 5E 16:24 → ICCU 18:58 → 4E 12-19 14:04
PROVIDERS: Internal Medicine; Internal Medicine Cardiovascular Disease; Physician Assistant; Student in an Organized Health Care Education/Training Program
DX: A41.9 Sepsis, unspecified organism (principal); N17.0 Acute kidney failure with tubular necrosis; E43 Unspecified severe protein-calorie malnutrition; N39.0 Urinary tract infection, site not specified; I48.92 Unspecified atrial flutter; R31.9 Hematuria, unspecified; R74.8 Abnormal levels of other serum enzymes; E66.9 Obesity, unspecified; Z66 Do not resuscitate; Z51.5 Encounter for palliative care; I35.1 Nonrheumatic aortic (valve) insufficiency; N41.9 Inflammatory disease of prostate, unspecified; B96.20 Unspecified Escherichia coli [E. coli] as the cause of diseases classified elsewhere; R65.20 Severe sepsis without septic shock; G20 Parkinson's disease; E55.9 Vitamin D deficiency, unspecified; I48.0 Paroxysmal atrial fibrillation; I10 Essential (primary) hypertension; E78.5 Hyperlipidemia, unspecified; E03.9 Hypothyroidism, unspecified; F32.9 Major depressive disorder, single episode, unspecified; Z79.82 Long term (current) use of aspirin; Z79.899 Other long term (current) drug therapy; Z90.49 Acquired absence of other specified parts of digestive tract; Z98.42 Cataract extraction status, left eye; Z83.3 Family history of diabetes mellitus; Z82.49 Family history of ischemic heart disease and other diseases of the circulatory system; Z80.0 Family history of malignant neoplasm of digestive organs; Z80.59 Family history of malignant neoplasm of other urinary tract organ; Z68.30 Body mass index [BMI] 30.0-30.9, adult

== ENCOUNTER 2018-01-27 19:18 | Emergency (ER) | payer MEDICARE ==
[~2018-01-27] VITALS: Ht 177.8 cm; Wt 86.2 kg
[~2018-01-27 19:18] MED LIST changes: +CIPROFLOXACIN500 M4 PO; +CLARITIN10 MG PO; +ICAPS AREDS SO1 EACH PO; +ICAPS MV TABLE1 EACH PO; +LIPITOR40 MG PO; +LOPRESSOR25 MG PO; +MELATONIN3 MG PO; +MIRALAX119 GM PO; +TYLENOL325 M2 PO; +VITAMIN D-32000 UNIT PO; +ZOLOFT50 MG PO
== END 2018-01-27 21:34 | disposition home or self-care (01) ==
LOC: ED 19:18
DX: S01.01XA Laceration without foreign body of scalp, initial encounter (principal); Z79.899 Other long term (current) drug therapy; Z90.49 Acquired absence of other specified parts of digestive tract; W19.XXXA Unspecified fall, initial encounter; Y93.89 Activity, other specified; Y92.89 Other specified places as the place of occurrence of the external cause; Y99.8 Other external cause status

== ENCOUNTER 2018-10-16 13:15 | Inpatient (IN) | payer MEDICARE ==
[~2018-10-16] VITALS: Ht 172.7 cm; Wt 95.0 kg
--- NOTE | ~2018-10-16 | CON ---
[place], [place] REPORT OF CONSULTATION NAME: SARITHA CAMPOS UNIT #: [id number] ROOM: 419 DOCTOR: NOEMI VASQUEZ MD BIRTHDATE: [birth year] DOS: 10/17/2018 CHIEF COMPLAINT: "I had a good breakfast. HISTORY OF PRESENT ILLNESS: This is an 87-year-old white male with a history of Parkinson's disease as well as Alzheimer's dementia, who was admitted to the medical floor at [facility] following multiple falls at home. This coincided with him starting a new medication Nuplazid, which per the daughter's report seems to have caused him excessive sedation and inability to ambulate properly. The patient has been pleasantly confused for the most part since he has been here in the hospital. PAST MEDICAL HISTORY: Remarkable for gait disturbance, weakness, debility, hyperchloremia, hyperglycemia, hypermagnesemia, normocytic anemia, falls, sacral wounds and transaminitis. He also has had a problem with atrial flutter in the past. SOCIAL HISTORY: He is a former cigarette smoker. He does not use illicit drugs or drink alcohol. MENTAL STATUS: He is alert and oriented to person, place, very approximate to time. For the most part, he was bright and pleasant and engaged in superficial conversation with me. He reported no issues. There were no significant symptoms suggestive of depression. There was no hypomania, horacio or psychosis. Short term memory did have some gaps. DIAGNOSIS: Alzheimer dementia. PLAN: I will go ahead and start him on Exelon patch 4.6 mg a day to impact positively on ADL maintenance, behavior and cognition. At this point in time, given the reaction he had to the Nuplazid, I would not restart it at this time, but rather monitor and support, engage in individual and erickson milieu activities, returning then home when psychiatrically stable. NOEMI VASQUEZ MD CM:CONSTR:REPORT OF CONSULTATION 0834 10/17/18 0943 interface
--- NOTE | ~2018-10-16 | EKG ---
[place], [place] ELECTROCARDIOGRAM REPORT NAME: SARITHA CAMPOS UNIT #: [id number] ROOM: 419 DOCTOR: CUAUHTEMOC DRAFT REPORT BIRTHDATE: [birth year] [facility] Test Date: 2018-10-16 Test Time: 19:01:08 Pat Name: SARITHA CAMPOS Department: Room: 419 Gender: M Test Engine Operator: Mar Gonzales : 1930 Requested By: KAYLA SEARS Order Number: [id number] Reading MD: Roxana Garnett Measurements Intervals [place] Rate: 74 P: 17 KS: 207 QRS: -51 QRSD: 109 T: -6 QT: 408 QTc: 453 Interpretive Statements Sinus rhythm Left anterior fascicular block Abnormal R-wave progression, early transition Borderline T wave abnormalities Compared to ECG 06/25/2018 18:17:26 T-wave abnormality now present Electronically Signed On 10-17-2018 9:06:51 PDT by Roxana Garnett CM:EKGRPT:ELECTROCARDIOGRAM REPORT [id number] KAYLA POSADAS DRAFT REPORT KAYLA SEARS MD
--- NOTE | ~2018-10-16 | EKG ---
[place], [place] ELECTROCARDIOGRAM REPORT NAME: SARITHA CAMPOS UNIT #: [id number] ROOM: 419 DOCTOR: CUAUHTEMOC DRAFT REPORT BIRTHDATE: [birth year] [facility] Test Date: 2018-10-16 Test Time: 13:29:14 Pat Name: SARITHA CAMPOS Department: Room: 419 Gender: M Cabbage Salter: : 1930 Requested By: KAYLA SEARS Order Number: [id number] Reading MD: Roxana Garnett Measurements Intervals [place] Rate: 62 P: 30 MD: 213 QRS: -49 QRSD: 111 T: -23 QT: 397 QTc: 404 Interpretive Statements Sinus rhythm Borderline prolonged MD interval Left anterior fascicular block Abnormal R-wave progression, late transition Nonspecific T abnormalities, diffuse leads Compared to ECG 06/25/2018 18:17:26 T-wave abnormality now present Electronically Signed On 10-17-2018 9:05:05 PDT by Roxana Garnett CM:EKGRPT:ELECTROCARDIOGRAM REPORT [id number] KAYLA POSADAS DRAFT REPORT KAYLA SEARS MD
--- NOTE | ~2018-10-16 | EKG ---
[place], [place] ELECTROCARDIOGRAM REPORT NAME: SARITHA CAMPOS UNIT #: [id number] ROOM: 419 DOCTOR: CUAUHTEMOC DRAFT REPORT BIRTHDATE: [birth year] [facility] Test Date: 2018-10-16 Test Time: 16:34:16 Pat Name: SARITHA CAMPOS Department: Room: 419 Gender: M Washing Machine Loader: Tessa Bergeron : 1930 Requested By: KAYLA SEARS Order Number: [id number] Reading MD: Roxana Garnett Measurements Intervals [place] Rate: 61 P: 16 VA: 215 QRS: -44 QRSD: 111 T: -21 QT: 422 QTc: 425 Interpretive Statements Sinus rhythm Borderline prolonged VA interval Left anterior fascicular block Abnormal R-wave progression, late transition Borderline T abnormalities, inferior leads Baseline wander in lead(s) V4 Compared to ECG 06/25/2018 18:17:26 T-wave abnormality now present Electronically Signed On 10-17-2018 9:05:54 PDT by Roxana Garnett CM:EKGRPT:ELECTROCARDIOGRAM REPORT 1634 0905 KAYLA POSADAS DRAFT REPORT KAYLA SEARS MD
[~2018-10-16 13:15] MED LIST changes: +CARBIDOPA-LEVO1 EAC1 PO; +CARBIDOPA-LEVO1 EAC2 PO; +CARBIDOPA-LEVO1 EAC8 PO; +DOXYCYCLINE100 M3 PO; +PREDNISONE50 MG PO; +TESSALON PERLE100 MG PO; +VENTOLIN,PR2 MG/5 ML PO
[2018-10-16 13:20] VITALS: BP 163/53
[2018-10-16] MEDS ORDERED: NUPLAZID34 MG PO (13:21)
[2018-10-16] MEDS ORDERED: CARBIDOPA-LEVO1 EAC6 PO ×2 (13:22→15:49)
[2018-10-16] MEDS ORDERED: CARBIDOPA-LEVO1 EAC2 PO (13:23)
[2018-10-16 13:46] LABS: BASO # 0.1 10*3/uL (0.0-0.1); BASO % 1.1 % (0.0-1.0); EOS # 0.2 10*3/uL (0.0-0.4); EOS % 3.2 % (1.0-4.0); HEMATOCRIT 38.4 % (42.0-52.0); HEMOGLOBIN 12.3 g/dl (14.0-18.0); LYMPH # 2.1 10*3/uL (1.3-4.4); LYMPH % 33.1 % (27.0-41.0); MEAN CORPUSCULAR HGB 29.1 pg (27.0-31.0); MEAN PLATELET VOLUME 10.3 fl (9.6-12.3); MONO # 0.7 10*3/uL (0.1-1.0); MONO % 10.8 % (3.0-9.0); NEUT # 3.3 10*3/uL (2.3-7.9); NEUT % 51.6 % (47.0-73.0); PLATELET COUNT AUTOMATED 203 10*3/uL (130-400); RED BLOOD COUNT 4.22 10*6/uL (4.50-5.90); RED CELL DISTRI WIDTH 14.6 % (0-14.5); WHITE BLOOD COUNT 6.3 10*3/uL (4.8-10.8)
[2018-10-16 14:02] LABS: ACT PARTIAL THROMBO TIME 23.3 SECONDS (20.0-32.1)
[2018-10-16 14:04] LABS: ALBUMIN 3.1 gm/dl (3.1-4.5); BUN 20 mg/dl (7-24); CHLORIDE 111 mmol/L (98-107); CREATININE 1.29 mg/dL (0.70-1.30); POTASSIUM 4.4 mmol/L (3.5-5.1); SGOT/AST 37 IU/L (3-35); SGPT/ALT 17 U/L (12-78); SODIUM 141 mmol/L (136-145); TOTAL PROTEIN 6.6 gm/dL (6.4-8.2)
[2018-10-16 14:05] LABS: ALKALINE PHOSPHATASE 27 U/L (45-117)
[2018-10-16 15:00] VITALS: BP 149/68
--- NOTE | 2018-10-16 15:00 | NUR ---
Time: 1499 A 87 year old MALE admitted to under services of EVY CARMICHAEL DO. Pt. arrived via bed from ER. Chief complaint: GENERALIZED WEAKNESS. ANA HERBERT
[2018-10-16] MEDS ORDERED: MIRALAX17 GM PO (15:53)
[2018-10-16] MEDS ORDERED: SCOOBY-DOO1 EAC1 PO (15:56)
[2018-10-16] MEDS ORDERED: CALMOSEPTINE O3.5 GM T (15:57)
[2018-10-16 16:00] VITALS: BP 149/68
--- NOTE | 2018-10-16 16:00 | NUR ---
NOTIFIED DR EDGAR THAT PT MED REC WAS COMPLETED AT BEDSIDE WITH PT DAUGHTER.ORDER RECIEVED FOR DIET.
--- NOTE | 2018-10-16 17:56 | NUR ---
NOTIFIED JUDAH GARCIA RN OF NEW CONSULT FOR MEDICATION ADJUSTMENT.
[2018-10-16 20:00] VITALS: BP 112/56; BP 132/55
[2018-10-16] MEDS ORDERED: SINEMET 25-1001 EACH PO (23:34)
[2018-10-16] MEDS ORDERED: Sinemet Cr 50/21 TAB PO (23:42)
--- NOTE | 2018-10-16 23:44 | NUR ---
SPOKE TO PT DAUGHTER SIL ON PHONE AND UPDATED PT MED REC FOR SINEMET MEDICATION PER PT DAUGHTER. PT DAUGHTER STATES THAT SHE WILL BRING A LIST OF PT MEDICATIONS IN TOMORROW FOR US TO KEEP IN HIS CHART. WILL NOTIFY HOSPITALIST RESIDENT OF MED REC UPDATE.
[2018-10-17] VITALS: BP 151/62
--- NOTE | 2018-10-17 02:46 | NUR ---
PT RESTING IN BED, RESPIRATIONS EASY AND UNLABORED. NO S/S OF DISTRESS NOTED. ALL SAFETY MEASURES IN PLACE. CALL LIGHT IN REACH.
[2018-10-17 06:47] LABS: BASO # 0.1 10*3/uL (0.0-0.1); BASO % 1.3 % (0.0-1.0); EOS # 0.3 10*3/uL (0.0-0.4); EOS % 3.7 % (1.0-4.0); HEMOGLOBIN 12.3 g/dl (14.0-18.0); LYMPH # 2.2 10*3/uL (1.3-4.4); LYMPH % 32.8 % (27.0-41.0); MEAN CELL VOLUME 89.7 fl (80.0-94.0); MEAN CORPUSCULAR HGB 28.3 pg (27.0-31.0); MEAN CORPUSCULAR HGB CONC 31.5 g/dl (33.0-37.0); MEAN PLATELET VOLUME 9.6 fl (9.6-12.3); MONO # 0.7 10*3/uL (0.1-1.0); MONO % 9.7 % (3.0-9.0); NEUT # 3.6 10*3/uL (2.3-7.9); NEUT % 52.4 % (47.0-73.0); PLATELET COUNT AUTOMATED 189 10*3/uL (130-400); RED BLOOD COUNT 4.35 10*6/uL (4.50-5.90); RED CELL DISTRI WIDTH 14.5 % (0-14.5); WHITE BLOOD COUNT 6.8 10*3/uL (4.8-10.8)
[2018-10-17 07:19] LABS: BUN 22 mg/dl (7-24); CHLORIDE 111 mmol/L (98-107); CREATININE 1.21 mg/dL (0.70-1.30); FREE T4 1.21 ng/dl (0.76-1.46); PHOSPHOROUS 3.3 mg/dL (2.5-4.9); SODIUM 141 mmol/L (136-145)
--- NOTE | 2018-10-17 07:47 | NUR ---
NOTIFIED DR EDGAR OF UPDATED HOME MED LIST.PT DAUGHTER CALLED IN AND ADDED HS MED.
[2018-10-17 08:00] VITALS: BP 121/61
[2018-10-17 08:38] LABS: VITAMIN D, 25-HYDROXY 33.1 ng/mL (30-100)
[2018-10-17 09:50] LABS: BILIRUBIN NEGATIVE (NEGATIVE); BLOOD NEGATIVE (NEGATIVE); CLARITY SL CLOUDY (CLEAR); COLOR YELLOW (YELLOW); GLUCOSE NEGATIVE (NEGATIVE); KETONE NEGATIVE (NEGATIVE); LEUKO ESTERASE 1+ (NEGATIVE); NITRITE NEGATIVE (NEGATIVE); SPECIFIC GRAVITY 1.025 (1.005-1.030); UROBILINOGEN 0.2 E.U./dl (0.2-1.0)
[2018-10-17 10:05] LABS: BACTERIA TRACE; EPITHELIAL CELLS 0-2; MUCOUS 1+; WBC 21-30 wbc/hpf (0-5)
--- NOTE | 2018-10-17 11:10 | NUR ---
DR EDGAR ROUNDED AND DISCUSSED THE PT PLAN OF CARE WITH DAUGHTER.
[2018-10-17 12:00] VITALS: BP 134/49
[2018-10-17 16:00] VITALS: BP 135/47
--- NOTE | 2018-10-17 17:45 | NUR ---
Patient resting quietly with no c/o discomfort. Respirations easy and regular. Vital signs stable. No overt distress. ANA HERBERT
--- NOTE | 2018-10-17 19:30 | NUR ---
PT RESTING IN BED, REPOSITIONED IN BED FOR COMFORT. RESP-EASY AND REGULAR. NO C/O AT THIS TIME. CLAL LIGHT IN REACH.
[2018-10-17 20:00] VITALS: BP 139/61
--- NOTE | 2018-10-17 21:30 | NUR ---
RESTING IN BED. NO C/O AT THIS TIME. TOLERATED ROUTINE MED WITH NO PROBLEM. CALL LIGHT IN REACH.
--- NOTE | 2018-10-17 21:33 | NUR ---
24 HR chart check completed.
[2018-10-18] VITALS: BP 128/62
--- NOTE | 2018-10-18 00:10 | NUR ---
PT RESTING IN BED WITH EYES CLOSED. AWAKENS EASILY. NO C/O AT THIS TIME. CALL LIGHT IN REACH. SEE SHIFT ASSESSMENT.
--- NOTE | 2018-10-18 04:00 | NUR ---
SLEEPING IN BED. RESP-EASY AND REGULAR. CALL LIGHT IN REACH.
--- NOTE | 2018-10-18 06:00 | NUR ---
PT TOLERATED ROUTINE MED WITH NO PROBLEM. CALL LIGHT IN REACH.
[2018-10-18 06:53] LABS: BASO # 0.1 10*3/uL (0.0-0.1); BASO % 0.9 % (0.0-1.0); EOS # 0.3 10*3/uL (0.0-0.4); EOS % 3.1 % (1.0-4.0); HEMATOCRIT 38.7 % (42.0-52.0); HEMOGLOBIN 12.2 g/dl (14.0-18.0); LYMPH # 2.2 10*3/uL (1.3-4.4); LYMPH % 27.5 % (27.0-41.0); MEAN CELL VOLUME 90.2 fl (80.0-94.0); MEAN CORPUSCULAR HGB 28.4 pg (27.0-31.0); MEAN CORPUSCULAR HGB CONC 31.5 g/dl (33.0-37.0); MEAN PLATELET VOLUME 10.4 fl (9.6-12.3); MONO # 0.8 10*3/uL (0.1-1.0); MONO % 9.3 % (3.0-9.0); NEUT # 4.8 10*3/uL (2.3-7.9); PLATELET COUNT AUTOMATED 206 10*3/uL (130-400); RED BLOOD COUNT 4.29 10*6/uL (4.50-5.90); RED CELL DISTRI WIDTH 14.6 % (0-14.5); WHITE BLOOD COUNT 8.1 10*3/uL (4.8-10.8)
[2018-10-18 07:06] LABS: BUN 22 mg/dl (7-24); CHLORIDE 111 mmol/L (98-107); CREATININE 1.19 mg/dL (0.70-1.30); POTASSIUM 3.9 mmol/L (3.5-5.1); SODIUM 142 mmol/L (136-145)
[2018-10-18 08:00] VITALS: BP 115/55
--- NOTE | 2018-10-18 08:23 | NUR ---
SARITHA CAMPOS [id number] Please refer to the physician's history and physical for past medical history, comorbid conditions, and allergies. Diagnosis: GENERALIZED WEAKNESS Patel Score: 18,LOW OR NO RISK WOUND DESCRIPTIONS: INTACT SCAR NOTED TO RIGHT AND LEFT BUTTOCK. SURROUNDING SKIN PINK AND INTACT. FOUR INTACT SCABS NOTED TO RIGHT KNEE. NO DRAINAGE NOTED. PATIENT TURNED TO LEFT SIDE AFTER ASSESSMENT. Surface the patient is resting on: Isoflex SKIN PREVENTION RECOMMENDATION: 1. Pressure redistribution support surface as appropriate 2. Elevate heels 3. Remove boots/TEDS every shift and reapply 4. Head of bed 30 degrees as tolerated 5. Assess nutrition and hydration 6. Manage moisture 7. Avoid the use of containment devices while in bed 8. Use absorptive products on surfaces limit layers of linens on bed 9. Turn and reposition every 1-2 hours in bed and every 1 hour in chair as tolerated 10. Weight shifts every 15 minutes while up in chair 11. Offloading with pillows or device to keep heels elevated off bed 12. Monitor skin at least every shift 13. Inspect under medical devices twice a day WOUND TREATMENT RECOMMENDATIONS: D/C UNSTAGEABLE GUIDELINES. D/C STAGE 2 GUIDELINES. DRESSING CHANGE: CLEANSE WITH SOAP AND WATER APPLY HYDRAGUARD EVERY SHIFT AND PRN FOR SOILING.
--- NOTE | 2018-10-18 10:58 | NUR ---
Occupational therapy eval complete on 4 with full eval to follow. Precautions include fall risk, bed alarm,aspiration precautions; assist with feeding, IV UE, and impaired cognition and memory. High complexity level 26922 via chart review, testing, and eval. Recommend OT per POC, Braxton lift for all transfers, and SNF upon discharge to enable return to max ability to function. Thank you for this referral. Emiliano Vazquez OTR/L
--- NOTE | 2018-10-18 10:58 | NUR ---
PHYSICAL THERAPY Physical therapy evaluation complete, 4E. Moderate complexity evaluation (86611) per chart review and evaluation. Full evaluation/details to follow. Continue with PT services per POC. Recommend cyrus use for transfers for increased safety at this time. Recommend SNF at discharge. Thank you. Leia Chiu,PT,DPT.
--- NOTE | 2018-10-18 11:55 | NUR ---
Dr. Walker notified of wound care recommendations.
[2018-10-18 12:00] VITALS: BP 139/57
--- NOTE | 2018-10-18 12:43 | NUR ---
PT IS CONFUSED AND UNABLE TO ANSWER QUESTIONS. CALLED DAUGHTER SIL AND SPOKE WITH HER ABOUT DISCHARGE PLANS. STATES SHE WANTS HER FATHER TO GO TO A SKILLED FACILITY ON DISCHARGE. DAUGHTER WAS GIVEN LIST OF FACILITIES THAT HAD BEDS AVAILABLE, SHE STATES SHE WILL VISIT [facility] TOMORROW AM AND DO SOME OTHER RESEARCH AND SHE WILL TELL US HER DECISION IN THE AM. WILL CONTINUE TO FOLLOW.
[2018-10-18 16:00] VITALS: BP 132/72
--- NOTE | 2018-10-18 19:50 | NUR ---
PT RESTING IN BED. RESP-EASY AND REGULAR. DAUGHTER AT HIS SIDE. TREMORS NOTED. REPOSITIONED IN BED. CALL LIGHT IN REACH.
[2018-10-18 20:00] VITALS: BP 147/74
--- NOTE | 2018-10-18 22:00 | NUR ---
REPOSITIONED IN BED. NO C/O AT THIS TIME. BED ALARM ON. CALL LIGHT IN REACH.
[2018-10-19] VITALS: BP 126/61
--- NOTE | 2018-10-19 00:15 | NUR ---
PT SLEEPING IN BED, AWAKENS EASILY. RESP-EASY AND REGULAR. NO C/O AT THIS TIME. CALL LIGHT IN REACH. SEE SHIFT ASSESSMENT.
--- NOTE | 2018-10-19 04:00 | NUR ---
PT SLEEPING IN BED. RESP-EASY AND REGULAR. CALL LIGHT IN REACH. BED ALARM ON.
--- NOTE | 2018-10-19 04:05 | NUR ---
Upon discharge recommend patient to follow up for wound care in outpatient setting continue current wound care orders at discharging facility.
[2018-10-19 09:00] VITALS: BP 130/40
--- NOTE | 2018-10-19 09:06 | NUR ---
OT NOTE Pt was seen this A.M. 1:1 for 26 minute OT session. Upon arrival pt was supine in bed. Pt identified by name and and had no complaints at this time. Pt transferred supine to sit EOB with maxA X 2. Sit to stand completed from bed level with Clemente X 2 and use of w/w for UE support. Challenged pt's static standing tolerance needed for increased I in self care tasks and functional transfers. Pt was able to tolerate aprox 3 minutes at a time before sitting due to fatigue. Stand pivot completed from EOB to the recliner with Clemente and modA for walker navigation. Pt then completed multiple sit to stand transfers from chair level with modA X 2 due to low surface and max verbal prompts for proper hand placement for improved technique. Pt's breakfast tray then arrived. Pt required maxA for set up of tray and was then able to complete self feeding with SBA and extra time given when using utensils after food was pre cut. Pt did require modA for management of cups with straws and lids due to being unable to grasp. Pt was left sitting upright in the recliner with call light in hand, tray table in place, and body alarm on for safety. Continue with POC as indicated. VINCENT Jha/Arlin
--- NOTE | 2018-10-19 09:36 | NUR ---
PHYSICAL THERAPY Patient gives informed consent for treatment. Patient has report of no pain or other concerns. Patient was identified by name and on wrist band. Patient performed supine to sitting transfer to EOB with MAX A X 2. Patient sat on EOB unassisted for 1 minute. Patient sit to stand transfer from EOB with MOD A X 2 with verbal cues for pushing off bed with hands and leaning forwards. Patient performed standing tolerance for 3 1/2 minutes with with CGA X 2 to SBA. Patient required verbal cues for upright posture and locking knees into extension to prevent knee buckling. Patient Stand Pivot transfer to bedside chair with CGA X 2 with use of Wh Walker and verbal cues for moving feet and turning. Patient sat back into chair with MOD A X 2 with verbal cues for putting hands back on armrests of chair. Patient 30 seconds sit to stands x 6 sit to stands with MAX A X 2 ON 1ST ATTEMPT, MOD A X 2 on remaining 5 sit to stand attempts. Patient did have to push off of chair armrests with hands each sit to stand during 30 seconds sit to stand test requiring the MOD to MAX ASSISTANCE as described above. Patient performed sitting bilateral LE ther ex incuding LAQs, marches, and heel raises x 15 reps each for strengthening the LEs in order to improve patient's functional mobility. Patient was left in bedside chair with call light within reach, chair alarm tested and attached, and and PCT SHELLY in room attending to the patient. Patient was 1:1 with this PIG MACHINE SUPERVISOR for 20 minutes total. LATONYA GARCIA PIG MACHINE SUPERVISOR
[2018-10-19 12:00] VITALS: BP 151/73
--- NOTE | 2018-10-19 12:53 | NUR ---
DAUGHTER WAS TO VISIT [facility], AND RESEARCH OTHER FACILITIES AND LET ME KNOW WHERE SHE WANTS HER FATHER TO GO.
--- NOTE | 2018-10-19 13:30 | NUR ---
SPOKE WITH DAUGHTER ABOUT SNF CARE. SHE STATES SHE VISITED [facility] AND IS OK WITH PT GOING THERE. EXPERIMENTAL WORKER INFORMED AND WILL SEND REFERRAL. WILL CONTINUE TO FOLLOW.
--- NOTE | 2018-10-19 13:54 | NUR ---
Patient and daughter requested a referral to [facility]. Contacted facility and faxed referral. Waiting on review/acceptance.
--- NOTE | 2018-10-19 14:24 | NUR ---
OT NOTE Pt was seen this P.M. 1;1 for second OT session consisting of 15 minutes. Upon arrival pt was sitting upright in the recliner. Pt identified by name and and had no complaints at this time. Pt completed multiple sit to stand transfers from chair level with modA X 2 and education on proper hand placement for improved technique. Pt then reported that he was wanting to stay up in the chair for a while. Pt was left sitting uprght in the recliner with call light in hand, tray table in place, and body alarm on for safety. Continue with POC as able. IVNCENT Jha/Arlin
[2018-10-19 16:00] VITALS: BP 129/60
--- NOTE | 2018-10-19 19:30 | NUR ---
PT ASSITED TO BED FROM CHAIR WITH 2 MAX ASSIST. RESP-EASY AND REGULAR. DAUGHTER AT HIS SIDE. NO C/O AT THIS TIME. CALL LIGHT IN REACH. BED ALARM ON.
[2018-10-19 20:00] VITALS: BP 159/59
--- NOTE | 2018-10-19 20:50 | NUR ---
TOLERATED ROUTINE MED WITH NO PROBLEM. NO C/O AT THIS TIME. CALL LIGHT IN REACH. BED ALARM ON.
--- NOTE | 2018-10-19 22:31 | NUR ---
24 HR chart check completed.
[2018-10-20] VITALS: BP 155/47
--- NOTE | 2018-10-20 00:20 | NUR ---
PT SLEEPING IN BED, AWAKENS EASILY. RESP-EASY AND REGULAR. CALL LIGHT IN REACH. SEE SHIFT ASSESSMENT.
--- NOTE | 2018-10-20 04:00 | NUR ---
SLEEPING IN BED. RESP-EASY AND REGULAR. CALL LIGHT IN REACH. BED ALARM ON.
--- NOTE | 2018-10-20 06:30 | NUR ---
TOLERATED ROUTINE MED WITH NO PROBLEM. CALL LIGHT IN REACH.
[2018-10-20 08:00] VITALS: BP 121/53
--- NOTE | 2018-10-20 08:48 | NUR ---
OT NOTE Pt was seen this A.M. 1:1 for 24 minute OT session. Upon arrival pt was supine in bed. Pt identified by name and and had no complaints at this time. Pt transferred supine to sit EOB with modA X 2. Pt then completed sit to stand from bed level with modA X 2 and use of w/w for UE support. Pt completed stand pivot from EOB to the recliner with Clemente and use of w/w pt required modA for walker navigation. Pt's breakfast tray arrived which he required maxA for set-up of tray and then completed self feeding with Clemente. Pt was able to manage all utensils with SBA and drinks with Clemente due to being unable to grasp cup. Pt was left sitting upright in the recliner with call light in hand, tray table in place, and body alarm on for safety. Continue with POC as able. VINCENT Jha/Arlin
--- NOTE | 2018-10-20 08:49 | NUR ---
PHYSICAL THERAPY Patient seen this am 1:1 for therapy visit and was supine in bed this morning upon therapist arrival. Patient was pleasant, voicing no new c/o's and transfers supine to sit EOB with MOD A. Patient presented with increased trunk / LE stiffness and needed to sit EOB a few minutes to collect himself. Patient performed seated marching, LAQ ex B LE x 10 reps each as a warmup to transfering sit to stand, MOD A with use of wh walker standing support. Patient completed SPT to to bedside chair, wh walker, MIN A, demonstrating a little difficulty picking feet up during pivot phase of transfer. Patient remained in bedside chair with call light, tray table and body alarm for safety. Will continue per POC as tolerated, total treatment time 15 minutes. Timbo Velazquez, MACHINE SAND MIXER
--- NOTE | 2018-10-20 11:36 | NUR ---
Patient was referred to [facility], however his first choice was [facility] and there were no beds. A male bed is now available in [facility] so referral was refaxed. [facility] is reviewing.
[2018-10-20 12:00] VITALS: BP 134/45
--- NOTE | 2018-10-20 12:59 | NUR ---
OT NOTE Attempted to see pt this P.M. for second OT session and upon arrival pt was eating his lunch. Will check back at a later time/date. VINCENT Jha/Arlin
--- NOTE | 2018-10-20 12:59 | NUR ---
OT NOTE Attempted to see pt this P.M. for second OT session and upon arrival pt was supine in bed and reported that he was wanting to rest at this time due to upcoming medical test. Will check back at a later time/date and continue with POC as able. VINCENT Jha/Arlin
--- NOTE | 2018-10-20 13:22 | NUR ---
Patient has been accepted to [facility], 3 night stay is complete. They have started the [place] [facility], waiting for clearance.
[2018-10-20 16:00] VITALS: BP 109/52
--- NOTE | 2018-10-20 19:30 | NUR ---
ASSUMED CARE FROM PT FROM DAY SHIFT RN. PT RESTING IN BED AT THIS TIME WITH NO OBVIOUS SIGNS/SYMPTOMS OF PAIN OR DISCOMFORT. RESPIRATIONS EASY AND NONLABORED. BED LOCKED AND IN THE LOWEST POSITION, CALL LIGHT WITHIN REACH. WILL CONTINUE TO MONITOR.
[2018-10-20 20:00] VITALS: BP 133/58
[2018-10-21] VITALS: BP 145/74
[2018-10-21 06:12] LABS: BASO # 0.1 10*3/uL (0.0-0.1); BASO % 1.2 % (0.0-1.0); EOS # 0.3 10*3/uL (0.0-0.4); HEMATOCRIT 38.9 % (42.0-52.0); HEMOGLOBIN 12.2 g/dl (14.0-18.0); LYMPH # 2.7 10*3/uL (1.3-4.4); LYMPH % 35.6 % (27.0-41.0); MEAN CELL VOLUME 90.3 fl (80.0-94.0); MEAN CORPUSCULAR HGB 28.3 pg (27.0-31.0); MEAN CORPUSCULAR HGB CONC 31.4 g/dl (33.0-37.0); MEAN PLATELET VOLUME 10.4 fl (9.6-12.3); MONO # 0.8 10*3/uL (0.1-1.0); MONO % 10.1 % (3.0-9.0); NEUT # 3.7 10*3/uL (2.3-7.9); PLATELET COUNT AUTOMATED 201 10*3/uL (130-400); RED BLOOD COUNT 4.31 10*6/uL (4.50-5.90); RED CELL DISTRI WIDTH 14.3 % (0-14.5); WHITE BLOOD COUNT 7.5 10*3/uL (4.8-10.8)
[2018-10-21 06:27] LABS: CREATININE 1.08 mg/dL (0.70-1.30)
[2018-10-21 08:00] VITALS: BP 125/59
--- NOTE | 2018-10-21 08:12 | NUR ---
Patient has been accepted to [facility], [facility] [facility] has cleared and 3 night stay complete. Patient is ok to go when medically stable for discharge.
--- NOTE | 2018-10-21 10:10 | NUR ---
OT NOTE Pt was seen this A.M. 1:1 for 23 minute OT session. Upon arrival pt was supine in bed. Pt identified by name and and had no complaints at this time. Pt transferred supine to sit EOB with maxA X 2 and positioned to the EOB with maxA X 2. Sit to stand completed from the EOB with modA X 2 and use of w/w for UE support. Functional mobility completed into the bathroom with Clemente and use of w/w with occasional LOB backwards that required maxA to correct. Pt transferred on and off standard commode with modA x 2. Clothing management completed with maxA and toilet hygiene completed with maxA. Functional mobility then completed back to the recliner with Clemente and use of w/w. Pt then completed multiple sit to stand transfers with constant verbal prompts for proper hand placement for increased I and improved technique. Pt performed four sit to stands with modA X 2 and each requiring verbal instruction for hand placement. Pt was left sitting upright in the recliner with call light in hand, tray table in place, and body alarm on for safety. Continue with POC as indicated. VINCENT Jha/Arlin
--- NOTE | 2018-10-21 10:44 | NUR ---
PHYSICAL THERAPY Patient gives informed consent for treatment. Patient was supine in bed with head of bed elevated upon this CONE MARKER arrriving in the patient's room. Patient transfers supine to sitting at EOB with MAX A X 2. Patient sits on EOB with CGA X 1. Patient sit to stand from EOB with MIN A X 2 with verbal cues for pushing of the bed with hands. Patient performed ambulation 15' x 1 with CGA X 2 with verbal cues for upright posture and locking knees into extension. Patient performed ambulation again for 20' x 1 with CGA X 1 and verbal cues for locking knees into extension and increasing step-length. Patient performed TUG TEST from low chair with MOD A X 2 to stand from chair in 1 minute and 3 seconds total time. Patient performed 4 sit to stands in 30 seconds with MOD A X 2 sit to stand each time. Patient required verbal cues for pushing off of chair. Patient ambulated again another 50' x 1 with Wh Walker and CGA X 1. Patient transferred to bedside chair with MIN A X 1 to sit back into chair with verbal cues for putting hands back on armrests of chair. Patient was left in sitting in bedside chair with call light within reach, chair alarm tested and attached to patient and tray table near patient. Patient was 1:1 with this CONE MARKER for 25 minutes total. LATONYA GARCIA CONE MARKER
--- NOTE | 2018-10-21 10:54 | NUR ---
Patient discharged to [facility] will transport at 11:30. NH, nursing/cemetery warden notified. Left voicemail for daughter.
--- NOTE | 2018-10-21 11:47 | NUR ---
[facility] Discharge instructions reviewed with patient/family. Patient receptive and verbalizes understanding. Follow-up care arranged. Written instructions given to patient/family. JONATHAN FAJARDO
--- NOTE | 2018-10-22 08:39 | NUR ---
OCCUPATIONAL THERAPY CO-SIGN I approve of the Occupational Therapy notes written above. RHYS WALKER OTR/Arlin
--- NOTE | 2018-10-22 14:43 | NUR ---
PHYSICAL THERAPY CO-SIGN I approve of the Physical Therapy notes written above. DANYEL BROWN PT,DPT
== END 2018-10-21 12:02 | disposition other institution (70) | DRG 948 ==
LOC: ED 13:15 → EDHOLD 14:20 → 4E 14:20
PROVIDERS: Emergency Medicine; Internal Medicine; ADMIT Internal Medicine
DX: R53.1 Weakness (principal); I48.92 Unspecified atrial flutter; F02.81 Dementia in other diseases classified elsewhere, unspecified severity, with behavioral disturbance; F32.9 Major depressive disorder, single episode, unspecified; G20 Parkinson's disease; E11.65 Type 2 diabetes mellitus with hyperglycemia; R26.2 Difficulty in walking, not elsewhere classified; I10 Essential (primary) hypertension; D64.9 Anemia, unspecified; E87.8 Other disorders of electrolyte and fluid balance, not elsewhere classified; Z66 Do not resuscitate; Z51.5 Encounter for palliative care; R74.0 Nonspecific elevation of levels of transaminase and lactic acid dehydrogenase [LDH]; E83.41 Hypermagnesemia; L89.312 Pressure ulcer of right buttock, stage 2; S80.02XA Contusion of left knee, initial encounter; G30.9 Alzheimer's disease, unspecified; S80.01XA Contusion of right knee, initial encounter; E03.9 Hypothyroidism, unspecified; E11.69 Type 2 diabetes mellitus with other specified complication; E66.9 Obesity, unspecified; I25.10 Atherosclerotic heart disease of native coronary artery without angina pectoris; E78.5 Hyperlipidemia, unspecified; L89.151 Pressure ulcer of sacral region, stage 1; W18.30XA Fall on same level, unspecified, initial encounter; Y93.89 Activity, other specified; Y99.8 Other external cause status; Y92.098 Other place in other non-institutional residence as the place of occurrence of the external cause; Z79.82 Long term (current) use of aspirin; Z79.899 Other long term (current) drug therapy; Z87.440 Personal history of urinary (tract) infections; Z87.891 Personal history of nicotine dependence; Z90.49 Acquired absence of other specified parts of digestive tract; Z98.42 Cataract extraction status, left eye; Z80.0 Family history of malignant neoplasm of digestive organs; Z80.8 Family history of malignant neoplasm of other organs or systems; Z82.49 Family history of ischemic heart disease and other diseases of the circulatory system; Z83.3 Family history of diabetes mellitus; Z68.31 Body mass index [BMI] 31.0-31.9, adult